=== PATIENT | male | born 1955 | race Caucasian/White ===

== ENCOUNTER 2017-03-14 13:49 | Emergency (ER) | payer SELFPAY ==
[2017-03-14] MEDS ORDERED: Silver Sulfadiazine 1%* 20 GM TOPICAL ONE (15:05)
[2017-03-14 16:14] VITALS: BP 131/82
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
== END 2017-03-14 16:12 | disposition home or self-care (01) ==
LOC: ED 13:49
DX: T23.251A Burn of second degree of right palm, initial encounter (principal); L03.012 Cellulitis of left finger; E78.00 Pure hypercholesterolemia, unspecified; Z79.4 Long term (current) use of insulin; X11.8XXA Contact with other hot tap-water, initial encounter; Y92.89 Other specified places as the place of occurrence of the external cause; Z86.73 Personal history of transient ischemic attack (TIA), and cerebral infarction without residual deficits
CPT/HCPCS: 99282; A9270-GY